=== PATIENT | female | born 1995 | race Caucasian/White ===

== ENCOUNTER 2018-09-26 11:54 | Outpatient (CLI) | payer OTHER ==
[~2018-09-26] VITALS: Ht 162.6 cm; Wt 193.8 kg
[2018-09-26 12:08] VITALS: Ht 162.6 cm; Wt 193.8 kg
[2018-09-26 12:09] VITALS: BP 129/58
[2018-09-26] MEDS ORDERED: PREN1TAB71 PO (12:11)
--- NOTE | 2018-09-26 13:19 | PN ---
Triage Information Date/Time Reason for visit: NST BPP for Low PAPPA Weeks of Gestation 34+ /Para n/a Diabetes: none Hypertention: none Objective Vital Signs Date Temp Pulse Resp B/P (MAP) Pulse Ox O2 O2 Flow FiO2 Time Delivery Rate 09/26/18 97.7 129/58 12:09 (81) Heart Rate: 140's Contractions: None Disposition: Discharge Assessment/Plan BPP 02/27 No CTXs --->Precautions disucssed --->Questions answered --->Follow up with provider NABILA VENTURA M.D. Sep 26, 2018 13:19
== END 2018-09-26 13:24 | disposition home or self-care (01) ==
LOC: OBT 11:54 → L-D 11:54 → OBT 13:24
PROVIDERS: ATTEND Specialist
DX: O41.93X0 Disorder of amniotic fluid and membranes, unspecified, third trimester, not applicable or unspecified (principal); Z3A.34 34 weeks gestation of pregnancy
CPT/HCPCS: 76818; Z7500; G0463

== ENCOUNTER 2018-10-10 16:22 | Outpatient (CLI) | payer OTHER ==
[~2018-10-10] VITALS: Ht 162.6 cm; Wt 89.9 kg
[~2018-10-10 16:22] MED LIST: PREN1TAB71 PO
[2018-10-10 16:26] VITALS: Ht 162.6 cm; Wt 89.9 kg
--- NOTE | 2018-10-10 17:22 | TRIAGE ---
OB Triage Datetime Report Generated by CPN: 10/10/2018 17:21 Datetime: 10/10/2018 17:20 Stage of : OB Triage Maternal Assessment Level of Consciousness: Fully Conscious DTR's/Clonus: DTRs 1+ Headache: Denies Breath Sounds, Left: Clear and Equal Breath Sounds, Right: Clear and Equal Nausea/Vomiting: Denies RUQ Epigastric Pain: Denies Labor Evaluation Frequency: X2 Monitor Mode: External Duration (sec)2399: 50-60 Quality: Mild Pattern: Normal: <= 5 Contractions in 10 Minutes Resting Tone [place]: Relaxed Heart Rate FHR Baseline Rate: 135 Monitor Mode: External US Variability: Moderate 6-25 bpm Accelerations: 15X15 Decelerations: None Category: Category I Pain Assessment Pain Scale: 0 Pain Presence: None/Denies Pain Type: N/A Pain Goal: 3 Vaginal Exam Membrane Status: Intact Datetime: 10/10/2018 16:32 Maternal Assessment Level of Consciousness: Fully Conscious DTR's/Clonus: DTRs 1+ Headache: Denies Blurred Vision: No Respiratory Effort: Unlabored Breath Sounds, Left: Clear and Equal Breath Sounds, Right: Clear and Equal Nausea/Vomiting: Denies RUQ Epigastric Pain: Denies Facial Edema: None Labor Evaluation Frequency: X1 Monitor Mode: External Duration (sec)2399: 50-60 Quality: Mild Pattern: Normal: <= 5 Contractions in 10 Minutes Resting Tone [place]: Relaxed Heart Rate FHR Baseline Rate: 135 Monitor Mode: External US Variability: Moderate 6-25 bpm Accelerations: 15X15 Decelerations: None Category: Category I Pain Assessment Pain Scale: 0 Pain Presence: None/Denies Pain Type: N/A Pain Goal: 3 Vaginal Exam Membrane Status: Intact Datetime: 10/10/2018 16:19 Assessment Type: Triage Maternal Assessment Level of Consciousness: Fully Conscious DTR's/Clonus: DTRs 2+; No Clonus Headache: Denies Blurred Vision: No Respiratory Effort: Unlabored; Regular Rhythm; Equal Expansion Breath Sounds, Left: Clear and Equal Breath Sounds, Right: Clear and Equal Nausea/Vomiting: Denies RUQ Epigastric Pain: Denies Lower Extremities Edema: None Degree: None Upper Extremities Edema: None Degree: None Facial Edema: None Fall Risk Assessment History of Falling: (0) No Secondary Diagnosis: (0) No Ambulatory Aid: (0) Bedrest/Nurse Assist IV Therapy: (0) No Gait: (0) Normal/Bedrest/Immobile Mental Status: (0) Oriented to Own Ability Fall Score: 0 Fall Risk Score Definition: No Risk: No action required Datetime: 10/10/2018 16:10 Time of Arrival: 10/10/2018 16:10 EGA: 36.0 Arrived By: Ambulatory Arrived From: Home Chief Complaint: NST BPP FOR LOW PAP A Movement: Present Contractions: Denies/Absent Rupture of Membranes: Denies Vaginal Discharge: Denies Recent Sexual Intercouse: Denies Abdominal Trauma: Not Applicable Additional Patient Complaints: NONE Time Provider Notified: 10/10/2018 16:27 Provider Notified: ROSA Initial Plan: NST BPP Datetime: 09/26/2018 12:13 EGA: 34.0 Fall Score: 0 Fall Risk Score Definition: No Risk: No action required
--- NOTE | 2018-10-10 17:24 | PN ---
Triage Information Date/Time Reason for visit: Uterine contractions Weeks of Gestation 36+ /Para n/a Diabetes: none Objective Heart Rate: 140's Contractions: >10 Minutes Apart Disposition: Discharge Assessment/Plan BPP 03/08 Cx closed Precautions discussed Questions answered Follow up with precaution NABILA VENTURA M.D. October 10, 2018 17:24
== END 2018-10-10 17:20 | disposition home or self-care (01) ==
LOC: OBT 16:22 → L-D 16:23 → OBT 17:20
PROVIDERS: ATTEND Specialist
DX: O62.9 Abnormality of forces of labor, unspecified (principal); Z3A.36 36 weeks gestation of pregnancy
CPT/HCPCS: 76818; Z7500; G0463